=== PATIENT | male | born 1965 ===

== ENCOUNTER → 2021-07-02 | Outpatient (REF) ==
--- NOTE | 2021-07-03 03:35 | REP ---
INDICATION: BACK PAIN COMPARISON: None. TECHNIQUE: AP, lateral, coned-down views of the lumbar spine. FINDINGS: Mild reversal of normal lordosis is nonspecific and likely chronic. Moderate multilevel degenerative changes include endplate sclerosis, marginal spurring/early osteophyte formation, disc space narrowing involving L2-3 through L5-S1. Suspected mild facet hypertrophy at L4-5 and L5-S1 is also suggested. There is no evidence for acute fracture/compression injury or subluxation. IMPRESSION: Moderate multilevel degenerative spondylosis. <Electronically signed by Varun Riojas > 07/03/21 [id number]
== END ==
LOC: M PLAIMG 13:34
PROVIDERS: ATTEND Internal Medicine
DX: M54.50 Low back pain, unspecified (principal)